=== PATIENT | male | born 1980 | race Caucasian/White ===

== ENCOUNTER → 2017-11-19 | Outpatient (CLI) | payer MEDICARE, MEDICAID ==
[~2017-11-19] MED LIST: BUPR-126 PO; LURA120T PO; METO25TA23 PO; TRAZ150T8 PO
== END ==
LOC: LAB 16:27
PROVIDERS: ATTEND Nurse Practitioner Psychiatric/Mental Health
DX: Z51.81 Encounter for therapeutic drug level monitoring (principal); Z79.899 Other long term (current) drug therapy
CPT/HCPCS: 36415; 80178

== ENCOUNTER → 2018-01-22 | Outpatient (CLI) | payer MEDICARE, MEDICAID ==
[2018-01-22 09:39] LABS: PLATELET COUNT, AUTOMATED 346 K/uL (150-450)
[2018-01-22 10:57] LABS: LDL CHOLESTEROL 34 mg/dl
== END ==
LOC: LAB 08:54
PROVIDERS: ATTEND Nurse Practitioner Psychiatric/Mental Health
DX: E13.65 Other specified diabetes mellitus with hyperglycemia (principal); I10 Essential (primary) hypertension; E78.5 Hyperlipidemia, unspecified
CPT/HCPCS: 36415; 82040; 82247; 82310; 82374; 82435; 82465; 82565; 82947; 83036; 83718; 84075; 84132; 84155; 84295; 84443; 84450; 84460; 84478; 84520; 85025

== ENCOUNTER 2018-03-13 13:50 | Emergency (ER) | payer MEDICARE, MEDICAID ==
--- NOTE | 2018-03-13 14:15 | ER Report ---
History and Physical Time Seen By MD: 14:02 Hx. of Stated Complaint: PT STATES THAT HIS PSYCH MEDS CAUSE HIS BLOOD SUGARS TO GO CRAZY, REPORTS ABDOMINAL DIFFUSE PAIN AND THROBBING HEAD, WEAK AND DIZZY ONSET 30 MINUTES AGO HPI/ROS CHIEF COMPLAINT: Dizziness, abdominal pain HISTORY OF PRESENT ILLNESS: Patient is a 37-year-old male who presents the ED with a complaint of dizziness and abdominal pain that started 1 hour ago. He states that he started to feel lightheaded and nauseated. He did develop a headache which she describes as a pulsing on the sides of his head. He states that this has been improving now. He describes diffuse abdominal pain but denies any vomiting or diarrhea. He denies any chest pain or shortness breath. Patient was concerned that maybe his blood sugar was too low that he did not take this himself. Patient states that he ate just prior to having the symptoms. He states that he ate some gas station fried sandwiches and Dorritos. He denies any previous history of abdominal surgeries. REVIEW OF SYSTEMS: Constitutional: No fever, no chills. Eyes: No discharge. ENT: No sore throat. Cardiovascular: No chest pain, no palpitations. Respiratory: No cough, no shortness of breath. Gastrointestinal: See history of present illness. Genitourinary: No hematuria. Musculoskeletal: No back pain. Skin: No rashes. Neurological: See history of present illness. No numbness/tingling, no patient changes.. Allergies: Uncoded Allergies: PSYCH MEDS (Adverse Reaction, Unknown, 04/12/16) Home Meds Reported Medications Atorvastatin Calcium (LIPITOR) 10 Mg Tablet, 1 TAB PO QDAY, TAB 03/13/18 Prazosin Hcl (PRAZOSIN HCL) 1 Mg Capsule, 1 MG PO, CAPSULE 03/13/18 Glipizide (GLIPIZIDE) 10 Mg Tablet, 10 MG PO Y for BID 03/13/18 Meloxicam (MELOXICAM) 7.5 Mg/5 Ml Oral.susp, 7.5 MG PO QDAY 03/13/18 Brexpiprazole (Rexulti) 2 Mg Tablet, QDAY 03/13/18 [place] Carbonate (LITHIUM CARBONATE) 300 Mg Tabcr, 300 MG PO TID 03/13/18 Metoprolol Succinate (METOPROLOL SUCCINATE) 25 Mg Tab.er.24h, 1 TAB PO QDAY, TAB 04/12/16 Discontinued Reported Medications Bupropion Hcl (WELLBUTRIN SR) 150 Mg Tablet.er, 450 MG PO QDAY, TAB 04/12/16 Trazodone Hcl (TRAZODONE HCL) 150 Mg Tablet, 150 MG PO QHS 04/12/16 Discontinued Scripts Lurasidone Hcl (LATUDA) 120 Mg Tablet, 120 MG PO DAILY, #30 TAB Prov:LUISITO C[employer]AS [employer] SAL[employer]PRESENTATIVE 04/12/16 Reviewed Nurses Notes: Yes Old Medical Records Reviewed: Yes Hx Smoking: No Smoking Status: Never Smoker Hx Substance Use Disorder: No Hx Alcohol Use: No Constitutional Vital Sign - Last 24 Hours 03/13/18 14:00 Temp 97.8 Pulse 79 Resp 16 B/P (MAP) 101/61 Pulse Ox 90 O2 Delivery Room Air Physical Exam General Appearance: The patient is alert, has no immediate need for airway protection and no signs of toxicity. Patient appears to be in no acute distress. Eyes: Pupils equal and round no pallor or injection. EOMs are full bilaterally. ENT, Mouth: Mucous membranes are moist. Respiratory: There are no retractions, lungs are clear to auscultation. Cardiovascular: Regular rate and rhythm. Gastrointestinal: There is slight left lower quadrant tenderness with palpation. No rebound or guarding is present. Normal bowel sounds in all 4 quadrants. Neurological: Cranial nerves II through XII intact. Normal Romberg. Normal finger to nose test bilaterally. Skin: Warm and dry, no rashes. Musculoskeletal: Neck is supple non tender. Extremities are nontender, nonswollen and have full range of motion. DIFFERENTIAL DIAGNOSIS: After history and physical exam differential diagnosis was considered for dizziness including but not limited to peripheral and central causes of vertigo, orthostatic causes including dehydration, and blood loss. Medical Decision Making Data Points Result Diagram: 03/13/18 1431 03/13/18 1431 Laboratory Hematology Test 03/13/18 14:04 03/13/18 14:31 03/13/18 15:15 Whole Blood Glucose 154 mg/DL (75-110) Red Blood Count 4.49 M/uL (4.00-5.60) Mean Corpuscular Volume 92.9 fL (80.0-96.0) Mean Corpuscular Hemoglobin 32.4 pg (26.0-33.0) Mean Corpuscular Hemoglobin Concent 34.9 g/dL (32.0-36.0) Red Cell Distribution Width 12.8 % (11.5-14.5) Mean Platelet Volume 6.6 fL (7.2-11.1) Neutrophils (%) (Auto) 69.7 % (39.4-72.5) Lymphocytes (%) (Auto) 20.4 % (17.6-49.6) Monocytes (%) (Auto) 6.9 % (4.1-12.4) Eosinophils (%) (Auto) 2.5 % (0.4-6.7) Basophils (%) (Auto) 0.5 % (0.3-1.4) Nucleated RBC Relative Count (auto) 0.0 /100WBC Neutrophils # (Auto) 6.5 K/uL (2.0-7.4) Lymphocytes # (Auto) 1.9 K/uL (1.3-3.6) Monocytes # (Auto) 0.6 K/uL (0.3-1.0) Eosinophils # (Auto) 0.2 K/uL (0.0-0.5) Basophils # (Auto) 0.1 K/uL (0.0-0.1) Nucleated RBC Absolute Count (auto) 0.00 K/uL Sodium Level 139 mmol/L (137-145) Potassium Level 3.6 mmol/L (3.5-5.0) Chloride Level 101 mmol/L (98-107) Carbon Dioxide Level 23 mmol/L (22-30) Blood Urea Nitrogen 20 mg/dl (9-21) Creatinine 1.10 mg/dl (0.66-1.25) Glomerular Filtration Rate Calc > 60.0 Random Glucose 140 mg/dl (75-110) Calcium Level 9.2 mg/dl (8.4-10.2) Total Bilirubin 0.3 mg/dl (0.2-1.3) Aspartate Amino Transf (AST/SGOT) 31 U/L (0-35) Alanine Aminotransferase (ALT/SGPT) 45 U/L (0-56) Alkaline Phosphatase 63 U/L (0-126) Troponin I < 0.012 ng/ml Total Protein 7.4 gm/dl (6.3-8.2) Albumin 4.4 g/dl (3.5-5.0) Lipase 93 U/L (23-300) Urine Color Yellow Urine Clarity Slightly-cloudy Urine pH 5.0 pH (4.8-9.5) Urine Specific [place] 1.026 Urine Protein 30 mg/dL (NEGATIVE) Urine Glucose (UA) Negative mg/dL (NEGATIVE) Urine Ketones Trace mg/dL (NEGATIVE) Urine Blood Negative (NEGATIVE) Urine Nitrite Negative (NEGATIVE) Urine Bilirubin Negative (NEGATIVE) Urine Urobilinogen 2.0 mg/dL (0.2-1.9) Urine Leukocyte Esterase Negative (NEGATIVE) Urine RBC <1 /HPF (0-2/HPF) Urine WBC 12 /HPF (0-5/HPF) Urine Squamous Epithelial Cells Few /LPF (</=FEW) Urine Bacteria Negative /HPF (NONE-FEW) Urine Hyaline Casts Many /LPF (NONE-FEW) Urine Mucus Few /HPF (NONE-FEW) Chemistry Test 03/13/18 14:04 03/13/18 14:31 03/13/18 15:15 Whole Blood Glucose 154 mg/DL (75-110) White Blood Count 9.4 k/uL (4.5-11.0) Red Blood Count 4.49 M/uL (4.00-5.60) Hemoglobin 14.6 g/dL (14.0-18.0) Hematocrit 41.8 % (42.0-52.0) Mean Corpuscular Volume 92.9 fL (80.0-96.0) Mean Corpuscular Hemoglobin 32.4 pg (26.0-33.0) Mean Corpuscular Hemoglobin Concent 34.9 g/dL (32.0-36.0) Red Cell Distribution Width 12.8 % (11.5-14.5) Platelet Count 348 K/uL (150-450) Mean Platelet Volume 6.6 fL (7.2-11.1) Neutrophils (%) (Auto) 69.7 % (39.4-72.5) Lymphocytes (%) (Auto) 20.4 % (17.6-49.6) Monocytes (%) (Auto) 6.9 % (4.1-12.4) Eosinophils (%) (Auto) 2.5 % (0.4-6.7) Basophils (%) (Auto) 0.5 % (0.3-1.4) Nucleated RBC Relative Count (auto) 0.0 /100WBC Neutrophils # (Auto) 6.5 K/uL (2.0-7.4) Lymphocytes # (Auto) 1.9 K/uL (1.3-3.6) Monocytes # (Auto) 0.6 K/uL (0.3-1.0) Eosinophils # (Auto) 0.2 K/uL (0.0-0.5) Basophils # (Auto) 0.1 K/uL (0.0-0.1) Nucleated RBC Absolute Count (auto) 0.00 K/uL Glomerular Filtration Rate Calc > 60.0 Calcium Level 9.2 mg/dl (8.4-10.2) Total Bilirubin 0.3 mg/dl (0.2-1.3) Aspartate Amino Transf (AST/SGOT) 31 U/L (0-35) Alanine Aminotransferase (ALT/SGPT) 45 U/L (0-56) Alkaline Phosphatase 63 U/L (0-126) Troponin I < 0.012 ng/ml Total Protein 7.4 gm/dl (6.3-8.2) Albumin 4.4 g/dl (3.5-5.0) Lipase 93 U/L (23-300) Urine Color Yellow Urine Clarity Slightly-cloudy Urine pH 5.0 pH (4.8-9.5) Urine Specific [place] 1.026 Urine Protein 30 mg/dL (NEGATIVE) Urine Glucose (UA) Negative mg/dL (NEGATIVE) Urine Ketones Trace mg/dL (NEGATIVE) Urine Blood Negative (NEGATIVE) Urine Nitrite Negative (NEGATIVE) Urine Bilirubin Negative (NEGATIVE) Urine Urobilinogen 2.0 mg/dL (0.2-1.9) Urine Leukocyte Esterase Negative (NEGATIVE) Urine RBC <1 /HPF (0-2/HPF) Urine WBC 12 /HPF (0-5/HPF) Urine Squamous Epithelial Cells Few /LPF (</=FEW) Urine Bacteria Negative /HPF (NONE-FEW) Urine Hyaline Casts Many /LPF (NONE-FEW) Urine Mucus Few /HPF (NONE-FEW) Urinalysis Test 03/13/18 15:15 Urine Color Yellow Urine Clarity Slightly-cloudy Urine pH 5.0 pH (4.8-9.5) Urine Specific [place] 1.026 Urine Protein 30 mg/dL (NEGATIVE) Urine Glucose (UA) Negative mg/dL (NEGATIVE) Urine Ketones Trace mg/dL (NEGATIVE) Urine Blood Negative (NEGATIVE) Urine Nitrite Negative (NEGATIVE) Urine Bilirubin Negative (NEGATIVE) Urine Urobilinogen 2.0 mg/dL (0.2-1.9) Urine Leukocyte Esterase Negative (NEGATIVE) Urine RBC <1 /HPF (0-2/HPF) Urine WBC 12 /HPF (0-5/HPF) Urine Squamous Epithelial Cells Few /LPF (</=FEW) Urine Bacteria Negative /HPF (NONE-FEW) Urine Hyaline Casts Many /LPF (NONE-FEW) Urine Mucus Few /HPF (NONE-FEW) ED Course/Re-evaluation ED Course Will obtain labs, EKG 03/13/2018 3:37:00 pm - discussed all labs with patient. Blood work is essentially normal except for slight hyperglycemia. He does have some elevated white blood cells in his urinalysis. He states that he is having some increased urinary frequency that has this often due to his diabetes. Will cover him for urinary tract infection with Cipro. Advised to follow up with Pretty Agarwal who is his primary care provider. He states he is feeling much improved here. He just feels embarrassed that he came in and now feels better. Decision to Disposition Date: March 13, 2018 Decision to Disposition Time: 15:37 Depart Departure Latest Vital Signs Vital Signs Date Time Temp Pulse Resp B/P (MAP) Pulse Ox O2 Delivery O2 Flow Rate FiO2 03/13/18 14:00 97.8 79 16 101/61 90 Room Air Impression: Primary Impression: Urinary tract infection Condition: Improved Disposition: HOME OR SELF-CARE Referrals: PRETTY AGARWAL (PCP) New Scripts Ciprofloxacin Hcl (CIPROFLOXACIN HCL) 500 Mg Tablet 500 MG PO Q12H, #14 TAB Prov: YOLANDA EVANS PA-C 03/13/18 Patient Instructions: Urinary Tract Infection in Men (ED) Additional Instructions: Stay well-hydrated. Follow-up with primary care provider in 2 to 3 days. If having any worsening or concerning symptoms may return the Emergency Department. Problem Qualifiers Primary Impression: Urinary tract infection Urinary tract infection type: acute cystitis Hematuria presence: without hematuria Qualified Codes: N30.00 - Acute cystitis without hematuria YOLANDA EVANS PA-C March 13, 2018 14:15
--- NOTE | 2018-03-13 14:24 | EKG ---
FACILITY: [facility] PATIENT NAME: RENETTA YOUNG : [id number] MR: [id number] V: [id number] EXAM DATE: ORDERING PHYSICIAN: YOLANDA EVANS TECHNOLOGIST: JERONIMO Caceres Reason : WEAKNESS Blood Pressure : / mmHG Vent. Rate : 078 BPM Atrial Rate : 078 BPM P-R Int : 184 ms QRS Dur : 082 ms QT Int : 386 ms P-R-T Axes : 003 082 057 degrees QTc Int : 440 ms Sinus rhythm Decreased R wave progression anteriorly Nonspecific ST abnormality Abnormal ECG No previous ECGs available Confirmed by VAISHNAVI CERVANTES ([id number] on 03/13/2018 9:10:48 PM Referred By: NATHAN Confirmed By:VAISHNAVI CERVANTES
[2018-03-13 14:41] LABS: PLATELET COUNT, AUTOMATED 348 K/uL (150-450)
[2018-03-13] MEDS ORDERED: LITHOBID PO (15:05)
[2018-03-13] MEDS ORDERED: BREX2TAB (15:05)
[2018-03-13] MEDS ORDERED: MELO7.5O3 PO (15:06)
[2018-03-13] MEDS ORDERED: GLIP-154 PO (15:06)
[2018-03-13] MEDS ORDERED: PRAZ1CAP26 PO (15:06)
[2018-03-13] MEDS ORDERED: ATOR10TA24 PO (15:07)
[2018-03-13] MEDS ORDERED: CIPR-214 PO (15:39)
[2018-03-13 15:41] VITALS: BP 109/52
== END 2018-03-13 15:54 | disposition home or self-care (01) ==
LOC: ER 13:56
DX: N30.00 Acute cystitis without hematuria (principal)
CPT/HCPCS: 36416; 81001; 82040; 82247; 82310; 82374; 82435; 82565; 82947; 82948; 83690; 84075; 84132; 84155; 84295; 84450; 84460; 84484; 84520; 85025; 87088; 93005; 99284